=== PATIENT | male | born 1965 | race Caucasian/White ===

== ENCOUNTER 2023-12-30 20:57 | Emergency (ER) | payer OTHER, SELFPAY ==
[2023-12-30 21:02] VITALS: BP 166/96
--- NOTE | 2023-12-30 21:44 | ED.GENMED ---
History of Present Illness
General
Chief Complaint: Abdominal Pain
Source: patient
Exam Limitations: none
Time Seen by Provider: 12/30/23 21:15
Travel History
Have you had any contact with someone who has COVID-19?: No
Do you have any symptoms of coronavirus? Fever > 100 degrees, chills, cough, shortness of breath, sore throat, loss of taste or smell, muscle aches, or headache?: No
History of Present Illness
History of Present Illness:
See MDM
Past History
Past History
ED Past Medical History: GERD
ED Past Surgical History: Other (Mohs)
Social History
Tobacco: Non-smoker
Alcohol: Occasional
Phy Exam
Physical Exam
Physical Exam:
See MDM
Course
Orders/Labs/Results
Orders:
Orders
12/30/23 21:06
Electrocardiogram (*1) Urgent
Reason for Study: Abdominal Pain
EKG- Treatment ONCE
Vital Signs
Initial and Last Documented VS:
Initial Vital Signs
Temp Pulse Resp BP Pulse Ox
98.4 F 70 20 166/96 99
12/30/23 21:02 12/30/23 21:02 12/30/23 21:02 12/30/23 21:02 12/30/23 21:02
Last Documented Vital Signs
Temp Pulse Resp BP Pulse Ox
98.4 F 70 20 166/96 99
12/30/23 21:02 12/30/23 21:02 12/30/23 21:02 12/30/23 21:02 12/30/23 21:02
MDM/Problems Addressed
Differential Diagnosis Includes:
HPI and MDM Narrative:
58-year-old male presenting with upper abdominal pain that has been persistent since today. Symptoms do appear to be worse when he eats. There is no exertional component. Patient is currently on methylprednisolone steroid pack for foot gout he
states his foot is feeling much better. Patient states he has a history of gastritis. Initially, patient states he was worried because his Pepcid is not helping when it usually does. Upon further questioning, patient does believe that it may be
helping. I discussed the coincidence of worsening abdominal pain with starting prednisolone. He does believe that his symptoms get worse every time he takes the steroid.
Patient had recent EGD and was told over the looks okay
When we had a long discussion about methylprednisolone possibly being the, patient agrees with that
He states his biggest concern was whether or not he had acute cholecystitis. I offered doing blood work and official ultrasound report versus bedside ultrasound. Patient opted for the bedside ultrasound knowing that we could potentially miss other
diagnoses. Bedside ultrasound performed by myself showing normal-sized gallbladder. No sludge or stones were noted. There was a questionable polyp. The common bile duct and gallbladder wall within normal limits. No pericholecystic fluid or
sonographic Thacker sign
Physical exam
General: Well appearing and non-toxic
HEENT: protecting airway
Neck: appears supple
CV: No evidence of cyanosis
Resp: No accessory muscle use
Abd: Non-distended. Very mild tenderness. No rebound
Extremities: No deformities
Neuro: alert
Psych: Normal affect
Skin: Intact
Problems Addressed including Acute and Chronic Conditions affecting care:
1. Steroid-induced gastritis
Acuity: acute
Prognosis: stable
Details: Patient will stop the methylprednisolone. Discussed follow-up with his PCP and continue with Pepcid. Discussed adding on PPI on a short-term basis
Differential Diagnosis (but not limited to): Gastritis, pancreatitis, esophagitis
Testing considered: Blood work and CT
Drug therapy (if applicable): OTC meds, please see d/c instruction regarding Rx drugs
Amount and/or Complexity of Data Reviewed
Clinical info obtained from: Patient
External data reviewed: N/A
Labs I independently reviewed (but not limited to): N/A
Radiology: N/A
Pulse Ox: not hypoxic
EKG independently reviewed: N/A
Bench Manager: N/A
Critical Care: N/A
Risk of Complication:
Social Determinants of health: Good social support
Discussed with other providers: N/A
Escalation of Care includes Admit/Obs: After being observed in the Emergency Department, pt stable for discharge.
Occasional wrong word or 'sound a like' substitutions may have occurred due to the inherent limitations of voice recognition software. Read the chart carefully and recognize, using context, where substitutions have occurred.
*Critical Care Note
Total Time (30-74mins, 75-104mins- exclusive of procedures): Not Applicable
ED Attending Note
-
Portions of this chart may have been created with voice recognition software.� Occasional wrong word or��sound alike� substitutions may have occurred due to the inherent limitations of voice recognition software.
Discharge Plan
Departure
Patient Disposition: Home (Routine Discharge)
Date of Disposition: 12/30/23
Time of Disposition: 21:44
Patient with high blood pressure during this ER visit?: Yes
Discharge Problem:
Gastritis
Instructions: Gastritis (DC), BLOOD PRESSURE
Activity Restrictions/Additional Instructions:
Please return for any worsening symptoms.
You may return at any time if you have further concerns.
Please follow up with your doctor at the first available appointment, preferably this week.
I would advise stopping the steroid.
Thank you for choosing [facility].
Interventions
Interventions:
*Risk Screen - Suicide Last Done: 12/30/23 21:02
*Neglect/Abuse Screening Last Done: 12/30/23 21:02
== END 2023-12-30 22:10 | disposition home or self-care (01) ==
LOC: EMR 20:57
PROVIDERS: EMERGENCY PHYSICIAN Student in an Organized Health Care Education/Training Program; FAMILY PHYSICIAN Family Medicine
DX: K29.70 Gastritis, unspecified, without bleeding (principal); K21.9 Gastro-esophageal reflux disease without esophagitis; Z87.19 Personal history of other diseases of the digestive system
CPT/HCPCS: 99283; 93005

== ENCOUNTER 2025-04-08 10:50 | Emergency (ER) | payer OTHER, SELFPAY ==
[2025-04-08] VITALS (13 sets, daily range): BP systolic 111–137; BP diastolic 70–96; PULSE 63–70; BMI 25.1
[2025-04-08 13:34] LABS: Urine Character Clear (Clear)
--- NOTE | 2025-04-08 13:36 | ED.GENMED ---
History of Present Illness
<Sravanthi Lima PA-C - Last Filed: 04/10/25 09:10>
General
Chief Complaint: Dizziness
Source: patient
Exam Limitations: none
Time Seen by Provider: 04/08/25 12:05
Nursing documentation reviewed up to this point in time: agreed with
History of Present Illness
History of Present Illness:
59 y/o M with h/o hiatal hernia
says he nearly passed out today, while walking on his treadmill when he was using his computer as he does most days
pt works from home,w robert up and hadn't eaten any breakfast
had coffee
was walking onthe treadmill and got a sudden pressure like sensation or fullness in his head, then tunnel vision and felt lightheaded and like he was going to pass out, a little bit roomy spinning
also had soem mild neck soreness
says that the symptom passed and about 10 m inutes later he went and showered and it happened again while hew as in the shower, but didn't pass out.
he thought maybe he was hypoglycemic so he ate some fruit and then about an hour later it happened again while he was walking
he did not fully pass out
has had some upper abd pain/pressure/epigastric region since yesterday which is sore to the touch; he has h/o hiatal hernia that 'acts up'
no nausea, vomiting, shortness of breath, fever, chills
pt feels he has been hdyrated
has had a lot of stress recently; mother has lung cancer
his epigatric pain has been acting up and he thinks due to stress
no black or tarry stools
had endosocpy 2 years ago, gastritis and duodenitis
Past History
<Sravanthi Lima PA-C - Last Filed: 04/10/25 09:10>
Past History
ED Past Medical History: GERD
ED Past Surgical History: Other (Mohs)
Social History
Tobacco: Former smoker
Alcohol: Occasional
Drug: None
Review of Systems
<Sravanthi Lima PA-C - Last Filed: 04/10/25 09:10>
Review of Systems
Allergies reviewed?: Yes
All Other Systems: Not applicable
Phy Exam
<Sravanthi Lima PA-C - Last Filed: 04/10/25 09:10>
Physical Exam
Physical Exam:
GENERAL: Alert , in no apparent distress
EYE: pupils equal and reactive
NECK: Supple, full ROM nontender
ENT: o/p clr, mmm.
CARDIAC: Regular rate and rhythm . no edema
LUNGS: Clear breath sounds bilaterally, no acute respiratory distress, no wheezes/rales/rhonchi
ABDOMEN: Soft, +epigastric tenderness mild; neg cordova's sign no r/g, no cvat, normal bowel sounds
heme pos trace stools; LIGHT BROWN
NEUROLOGICAL: Alert and oriented, no focal neuro deficits, cn intact, 5/5 sdtrength, sensation intact
SKIN: Warm and dry, skin intact.
MUSCULOSKELETAL: No edema, well perfused. neg freedom's sign
PSYCH: Normal and appropriate interaction.
Course
<Sravanthi Lima PA-C - Last Filed: 04/10/25 09:10>
Orders/Labs/Results
Orders:
Orders
04/08/25 10:52
Electrocardiogram (*1) Urgent
Reason for Study: Chest Pain
EKG- Treatment ONCE
04/08/25 13:08
Orthostatic VS- Treatment ONCE
04/08/25 13:24
Complete Blood Count/With Diff Urgent
Comprehensive Metabolic Panel Urgent
Lipase Urgent
Troponin I Urgent
Urinalysis Reflex To Culture Urgent
Date Specimen was Collected: 04/08/25
Time Specimen was Collected: 13:12
04/08/25 13:51
CT Head & Neck Angio W/wo IV Urgent
Comment:
Reason For Exam: near syncope with head pressure/neck pain x 3 toda
04/08/25 14:49
0.9% Sodium Chloride 1000 ml [Nss] 1,000 ml IV BOLUS
04/08/25 15:06
Pantoprazole [Protonix] 40 mg PO NOW STA
04/08/25 15:15
EKG- Treatment ONCE
04/08/25 16:15
Electrocardiogram (*1) Urgent
Reason for Study: Chest Pain
04/08/25 16:37
Troponin I Urgent
Abnormal Lab Results
04/08/25
13:24
RBC 4.55 L 10^6/uL
(4.70-6.10)
MCH 32.1 H pg
(27.0-31.0)
Lymphocytes % 17.8 L %
(20.5-51.1)
BUN 26 H mg/dl
(9-20)
Glucose 108 H mg/dl
(70-99)
04/08/25 13:24
04/08/25 13:24
Vital Signs
Initial and Last Documented VS:
Initial Vital Signs
Temp Pulse Resp BP Pulse Ox
36.5 C 81 16 131/88 97
04/08/25 10:57 04/08/25 10:57 04/08/25 10:57 04/08/25 10:57 04/08/25 10:57
Last Documented Vital Signs
Temp Pulse Resp BP Pulse Ox
36.5 C 90 21 137/88 98
04/08/25 10:57 04/08/25 17:15 04/08/25 17:15 04/08/25 17:00 04/08/25 17:15
<Layne Lopez PA-C - Last Filed: 04/08/25 19:12>
Orders/Labs/Results
Orders:
Orders
04/08/25 10:52
Electrocardiogram (*1) Urgent
Reason for Study: Chest Pain
EKG- Treatment ONCE
04/08/25 13:08
Orthostatic VS- Treatment ONCE
04/08/25 13:24
Complete Blood Count/With Diff Urgent
Comprehensive Metabolic Panel Urgent
Lipase Urgent
Troponin I Urgent
Urinalysis Reflex To Culture Urgent
Date Specimen was Collected: 04/08/25
Time Specimen was Collected: 13:12
04/08/25 13:51
CT Head & Neck Angio W/wo IV Urgent
Comment:
Reason For Exam: near syncope with head pressure/neck pain x 3 toda
04/08/25 14:49
0.9% Sodium Chloride 1000 ml [Nss] 1,000 ml IV BOLUS
04/08/25 15:06
Pantoprazole [Protonix] 40 mg PO NOW STA
04/08/25 15:15
EKG- Treatment ONCE
04/08/25 16:15
Electrocardiogram (*1) Urgent
Reason for Study: Chest Pain
04/08/25 16:37
Troponin I Urgent
Abnormal Lab Results
04/08/25
13:24
RBC 4.55 L 10^6/uL
(4.70-6.10)
MCH 32.1 H pg
(27.0-31.0)
Lymphocytes % 17.8 L %
(20.5-51.1)
BUN 26 H mg/dl
(9-20)
Glucose 108 H mg/dl
(70-99)
04/08/25 13:24
04/08/25 13:24
Vital Signs
Initial and Last Documented VS:
Initial Vital Signs
Temp Pulse Resp BP Pulse Ox
36.5 C 81 16 131/88 97
04/08/25 10:57 04/08/25 10:57 04/08/25 10:57 04/08/25 10:57 04/08/25 10:57
Last Documented Vital Signs
Temp Pulse Resp BP Pulse Ox
36.5 C 90 21 137/88 98
04/08/25 10:57 04/08/25 17:15 04/08/25 17:15 04/08/25 17:00 04/08/25 17:15
<Sravanthi Lima PA-C - Last Filed: 04/10/25 09:10>
MDM/Problems Addressed
Differential Diagnosis Includes:
NEAR SYNCOPE/VASOVAGAL, DEHYDRATION, ORTHOSTASIS, GI BLEED, LESS LIKELY CARDIAC DYSRHYTHMIA
MDM/Problems Addressed:
59 y/o M
h/o gastritis/duodenitis not on PPI
here with near sycnoep while walking x 3 episodes today rather spaced together
has been under a lot of stress
epigastric pain flared up yesterday and he has had it today as well but drank coffee this morning without eating and then while doing light walking nearly passed out; he felt dizziness and fullyness in his head as wellwith this
no real ches tpain, just the peristent and not worse epigastric pain
here he feels back to normal
neg orthostatics
normal neuro exam
no neck trauma
ekg shows 1 t wave inv avL compared to old; toherwise neg
1st trop neg
doubt this epigastricp ain is anginal equivalent
but will repeat 2nd trop/ekg for 4 pm
epigastric pain likely related to gastritis or PUD and pt has VERY FAINT heme pos light brown stool
bun 26 but hg stable
d/w ed attending
stalbe from GI bleeding perspective but return precautions
will start PPI and recommend GI f/u
anticipate d/c after 2nd trop and ekg at 4 pm
<Sravanthi Lima PA-C - Last Filed: 04/10/25 09:10>
*Pulse Oximetry
SaO2: 98
Oxygen Mode of Delivery: Room air
<Layne Lopez PA-C - Last Filed: 04/08/25 19:12>
*Pulse Oximetry
Patient hypoxic: no (97%)
*Critical Care Note
Total Time (30-74mins, 75-104mins- exclusive of procedures): Not Applicable
<Layne Lopez PA-C - Last Filed: 04/08/25 19:12>
Update Note
Update Note:
CTA head/neck negative for acute findings. Repeat EKG shows normal sinus rhythm without ischemic changes and second troponin remains undetectable. Patient is asymptomatic on reassessment. He is ambulating with a steady gait. Patient stable for
discharge.
ED Attending Note
<Sravanthi Lima PA-C - Last Filed: 04/10/25 09:10>
-
Portions of this chart may have been created with voice recognition software.� Occasional wrong word or��sound alike� substitutions may have occurred due to the inherent limitations of voice recognition software.
Discharge Plan
Departure
Patient Disposition: Home (Routine Discharge)
Date of Disposition: 04/08/25
Time of Disposition: 17:24
Patient with high blood pressure during this ER visit?: No
Condition: Fair
Covid-19: Not Applicable
Discharge Problem:
Gastritis, Heme positive stool, Near syncope
Instructions: Near Fainting (DC), Gastritis - Discharge instructions
Prescriptions:
New
pantoprazole [Protonix] 40 mg tablet,delayed release (DR/EC)
40 mg PO DAILY Qty: 14 0RF
No Action
acetaminophen [Tylenol] 325 mg Tablet
650 mg PO Q6H PRN (Reason: pain/fever)
Referrals:
Harris Rutherford MD [Active, Gastroenterology] - Follow up in 5-7 days
Dilan Doss DO [Family Provider, Family Practice] - Follow up in 2-3 days
Activity Restrictions/Additional Instructions:
YOUR CAT SCAN OF YOUR HEAD/NECK WAS NEGATIVE FOR ANY CONCERNING FINDINGS TO C AUSE YOUR NEAR PASSING OUT
YOUR EKG IS SUBTLY CHANGED FROM AN OLD ONE WHICH WITH 2 NEGATIVE TROPONINS IS NONSPECIFIC
YOUR UPPER ABDOMINAL PAIN NEEDS MOER WORK UP WITH YOUR GI DOCTOR
FOR NOW TRY PROTONIX 40 MG ON EMPTY STOMACH FIRST THING IN THE MORNING
WAIT 45 MINTUES BEFORE EATING
DO THIS FOR 2 WEEKS
HAVE A LOW THRESHOLD TO RETURN TOT HE ER: WORSE/SEVERE ABDOMINAL PAIN, CHEST PAIN, PASSING OUT, BLACK STOOL, BLOODY STOOL, VOMITING BLOOD OR ANY CONCERNS
AVOID ACIDIC FOODS, NSAIDS, ASPIRIN
FOLLOW UP WITH YOUR FAMILY DOCTOR WELL
Interventions
Interventions:
*Risk Screen - Suicide Last Done: 04/08/25 10:59
*General Assessment Last Done: 04/08/25 13:37
*Neglect/Abuse Screening Last Done: 04/08/25 10:59
*ED- Fall Risk Assessment Last Done: 04/08/25 13:37
*ED COVID-19 Vaccine History Last Done: 04/08/25 13:37
*Nursing Disposition Last Done: 04/08/25 17:38
ED- Neurological Assessment Last Done: 04/08/25 13:37
ED- Cardiac Assessment Last Done: 04/08/25 13:37
ED Swallowing Screen Last Done: 04/08/25 13:37
Discharge Date and Time
Discharge Date/Time: 04/08/25 17:40
Print Language: GIBRALTARIAN
[2025-04-08 13:45] LABS: Hematocrit 41.4 % (39.0-52.0); Hemoglobin 14.6 g/dL (13.0-18.0); Mean Corp Hgb Conc. 35.3 g/dL (33.0-37.0); Mean Corpuscular Volume 91.0 fL (80.0-94.0); Nucleated Red Blood Cells % 0 % (-); Platelet Count 235 10^3/uL (130-400); Red Cell Dist. Width 12.0 % (11.5-14.5)
[2025-04-08 13:52] LABS: Potassium 4.2 mmol/L (3.5-5.1)
[2025-04-08 13:54] LABS: ALT (SGPT) 27 U/L (0-50); AST (SGOT) 25 U/L (17-59); Albumin 4.8 g/dl (3.5-5.0); Alkaline Phosphatase 44 U/L (38-126); Blood Urea Nitrogen 26 mg/dl (9-20); Calcium 9.9 mg/dl (8.4-10.2); Carbon Dioxide 28 mmol/L (22-30); Chloride 104 mmol/L (98-107); Estimated Creatinine Clearance 86 ml/min; Glucose 108 mg/dl (70-99); Lipase 79 U/L (23-300); Sodium 138 mmol/L (135-145); Total Protein 7.6 g/dl (6.3-8.2); eGFR > 60.00
[2025-04-08 14:05] LABS: Troponin I < 0.012 ng/ml
[2025-04-08] MEDS: PROTONIX 40 MG PO (15:16)
[2025-04-08] MEDS: NSS 1000 IV (15:16)
[2025-04-08 17:12] LABS: Troponin I < 0.012 ng/ml
== END 2025-04-08 17:40 | disposition home or self-care (01) ==
LOC: EMR 10:50
PROVIDERS: Physician Assistant; EMERGENCY PHYSICIAN Student in an Organized Health Care Education/Training Program; FAMILY PHYSICIAN Family Medicine
DX: R55 Syncope and collapse (principal); R10.10 Upper abdominal pain, unspecified; K29.00 Acute gastritis without bleeding; R19.5 Other fecal abnormalities; M54.2 Cervicalgia; K44.9 Diaphragmatic hernia without obstruction or gangrene; K21.9 Gastro-esophageal reflux disease without esophagitis; M10.9 Gout, unspecified; Z63.79 Other stressful life events affecting family and household; Z87.891 Personal history of nicotine dependence; Z85.828 Personal history of other malignant neoplasm of skin; Z86.16 Personal history of COVID-19; Z91.048 Other nonmedicinal substance allergy status
CPT/HCPCS: 99285; 96360; 70496; 70498; 80053; 81003; 83690; 84484; 85025; 93005; Q9967

== ENCOUNTER → 2025-04-09 10:52 | Outpatient (REF) | payer OTHER, SELFPAY | LOC: HWRAD 10:52 | PROVIDERS: ATTENDING PHYSICIAN Family Medicine | DX: Z87.891 Personal history of nicotine dependence (principal) | CPT/HCPCS: 71271 ==

== ENCOUNTER 2025-04-28 14:37 | Emergency (ER) | payer OTHER, SELFPAY ==
[2025-04-28 14:42] VITALS: BP 129/79
[2025-04-28 15:16] LABS: Hematocrit 39.9 % (39.0-52.0); Hemoglobin 14.3 g/dL (13.0-18.0); Mean Corp Hgb Conc. 35.8 g/dL (33.0-37.0); Mean Corpuscular Volume 90.3 fL (80.0-94.0); Nucleated Red Blood Cells % 0 % (-); Platelet Count 252 10^3/uL (130-400); Red Cell Dist. Width 11.9 % (11.5-14.5)
[2025-04-28 15:21] LABS: INR 0.97; PT 13.2 Sec (11.4-14.6)
[2025-04-28 15:22] LABS: APTT 27.1 Sec (23.4-35.0)
[2025-04-28 15:26] LABS: ALT (SGPT) 34 U/L (0-50); AST (SGOT) 28 U/L (17-59); Albumin 4.9 g/dl (3.5-5.0); Alkaline Phosphatase 43 U/L (38-126); Blood Urea Nitrogen 18 mg/dl (9-20); Calcium 9.5 mg/dl (8.4-10.2); Carbon Dioxide 29 mmol/L (22-30); Chloride 101 mmol/L (98-107); Glucose 90 mg/dl (70-99); Potassium 4.5 mmol/L (3.5-5.1); Sodium 136 mmol/L (135-145); Total Protein 7.6 g/dl (6.3-8.2); eGFR > 60.00
--- NOTE | 2025-04-28 16:27 | ED.GENMED ---
History of Present Illness
General
Chief Complaint: Rectal Bleeding
Source: patient
Exam Limitations: none
Time Seen by Provider: 04/28/25 16:27
History of Present Illness
History of Present Illness:
59yoM with a history of GERD and a hiatal hernia presenting for evaluation after an episode of dark stools. Patient had some stabbing pain in his epigastric region last night. This started after he ate fried chicken for dinner. Pain has improved
but he continues to feel some bloating. He had an episode of black stool this morning. He has not had any further bowel movements since. He denies any chest pain, shortness of breath, dizziness, syncope. Of note, patient took Pepto-bismol last
night due to his abdominal symptoms. He called the GI office this morning and he was advised to go to the ED for evaluation. Patient does not take any blood thinners.
Past History
Past History
ED Past Medical History: GERD
ED Past Surgical History: Other (Mohs)
Social History
Tobacco: Former smoker
Alcohol: Occasional
Drug: None
Phy Exam
General Physical Exam
General Presentation: well appearing and no apparent distress
General Skin: warm and dry
General Habitus: normal
General Mental: alert
ENT Exam
ENT Exam: normocephalic
Pulmonary Exam
Pulmonary Exam: no respiratory distress
Gastrointestinal Exam
Gastrointestinal Exam: non tender, soft and non distended
Stool: other (No stool obtained on digital rectal exam. )
Neurological Exam
Neurological Exam: alert
Jaz Coma Scale
Eye Opening: Spontaneous
Verbal Response: Oriented
Motor Response: Obeys Commands
GCS Total Score: 15
Skin Exam
Skin Exam: normal color and warm/dry
Psychiatric Exam
Psychiatric Exam: normal mood/affect
Course
Orders/Labs/Results
Orders:
Orders
04/28/25 14:47
ECG [Electrocardiogram (*1)] Urgent
Reason for Study: Abdominal Pain
EKG- Treatment ONCE
04/28/25 14:54
Type+Screen Urgent
Complete Blood Count/With Diff Urgent
Comprehensive Metabolic Panel Urgent
Lipase Urgent
PTT Urgent
Prothrombin Time Urgent
04/28/25 15:12
ABO2 Urgent
BBK Wristband Number:
Associate notified that ABO2 has been ordered: [id number]
Date: 04/28/25
Time: 15:12
Plastic Sheets Finishing Supervisor ID: [id number]
04/28/25 16:52
Add On- LAB Stat
Tests Added?: lipase
Abnormal Lab Results
04/28/25
14:54
RBC 4.42 L 10^6/uL
(4.70-6.10)
MCH 32.4 H pg
(27.0-31.0)
04/28/25 14:54
04/28/25 14:54
Vital Signs
Initial and Last Documented VS:
Initial Vital Signs
Temp Pulse Resp BP Pulse Ox
98.2 F 77 18 129/79 97
04/28/25 14:42 04/28/25 14:42 04/28/25 14:42 04/28/25 14:42 04/28/25 14:42
Last Documented Vital Signs
Temp Pulse Resp BP Pulse Ox
98.2 F 58 16 120/71 96
04/28/25 14:42 04/28/25 17:00 04/28/25 17:00 04/28/25 17:00 04/28/25 17:00
MDM/Problems Addressed
Differential Diagnosis Includes:
59yoM here after 1 episode of dark stool this AM. Had some stabbing epigastric pain last night. Hx of GERD and hiatal hernia. Did take a dose of Pepto-Bismol last night. VSS. He is well appearing in no distress. Abdominal exam is benign. No stool
obtained on digital rectal exam. Differential diagnosis includes but is not limited to: black stool secondary to Pepto-Bismol, gastritis, PUD, AVM
Workup initiated in triage. Hemoglobin is normal at 14.3. BUN also normal. Suspect black stool was related to Pepto-Bismol. Repeat vitals are normal. No indication for hospitalization. He was started on Protonix BID. Message sent to the GI front
office to arrange close f/u. Strict ED return precautions reviewed. Patient discharged in stable condition.
*Pulse Oximetry
SaO2: 97
Oxygen Mode of Delivery: Room air
Patient hypoxic: no (97%)
*EKG
Interpreted by ED Provider?: Yes
EKG Intrepretation Date: 04/28/25
Heart Rate: 71
Rate: normal
Rhythm: sinus
[place]: normal axis
Interval: normal interval
QRS Pattern: normal QRS
Ischemia: no ischemia
*Critical Care Note
Total Time (30-74mins, 75-104mins- exclusive of procedures): Not Applicable
ED Attending Note
-
Portions of this chart may have been created with voice recognition software.� Occasional wrong word or��sound alike� substitutions may have occurred due to the inherent limitations of voice recognition software.
Discharge Plan
Departure
Patient Disposition: Home (Routine Discharge)
Date of Disposition: 04/28/25
Time of Disposition: 17:08
Patient with high blood pressure during this ER visit?: No
Discharge Problem:
Black stool
Instructions: Gastritis - ED discharge instructions
Prescriptions:
New
pantoprazole [Protonix] 40 mg tablet,delayed release (DR/EC)
40 mg PO BID 30 Days Qty: 60 0RF
No Action
pantoprazole [Protonix] 40 mg tablet,delayed release (DR/EC)
40 mg PO DAILY Qty: 14 0RF
acetaminophen [Tylenol] 325 mg Tablet
650 mg PO Q6H PRN (Reason: pain/fever)
Referrals:
Dilan Doss DO [Family Provider, Family Practice]
Bere Larios DO [Active, Gastroenterology]
Activity Restrictions/Additional Instructions:
Take Protonix as prescribed. Avoid foods that worsen acid reflux (avoid citrus, alcohol, spicy foods, etc.).
Please call tomorrow to schedule a follow-up with gastroenterology. Return to the ER with any new or worsening symptoms including dizziness, shortness of breath, or passing out.
Interventions
Interventions:
*Risk Screen - Suicide Last Done: 04/28/25 14:42
*General Assessment Last Done: 04/28/25 17:08
*Neglect/Abuse Screening Last Done: 04/28/25 17:08
*ED- Fall Risk Assessment Last Done: 04/28/25 17:08
*ED COVID-19 Vaccine History Last Done: 04/28/25 17:08
*Nursing Disposition Last Done: 04/28/25 17:30
RU-Fdzfwu-Pbehhygpci Assessment Last Done: 04/28/25 17:08
ED- Cardiac Assessment Last Done: 04/28/25 17:08
ED- Pulmonary Assessment Last Done: 04/28/25 17:08
Discharge Date and Time
Discharge Date/Time: 04/28/25 17:32
Print Language: GREENLANDIC
[2025-04-28 17:00] VITALS: BP 120/71
--- NOTE | 2025-04-28 17:06 | EDRN ---
Pt states he arrives for UGI issues. Stool dark and tarry. Pt took peptobismol last night.
[2025-04-28 17:08] VITALS: BMI 26.0
[2025-04-28 17:24] LABS: Lipase 121 U/L (23-300)
== END 2025-04-28 17:32 | disposition home or self-care (01) ==
LOC: EMR 14:37
PROVIDERS: Emergency Medicine; EMERGENCY PHYSICIAN Emergency Medicine; FAMILY PHYSICIAN Family Medicine
DX: K92.1 Melena (principal); Z87.891 Personal history of nicotine dependence
CPT/HCPCS: 99284; 80053; 83690; 85025; 85610; 85730; 86850; 86900; 86901; 93005

== ENCOUNTER 2025-05-21 06:26 | Day surgery (SDC) | payer OTHER, SELFPAY | END 2025-05-21 12:08 | disposition home or self-care (01) | LOC: GI 06:26 | PROVIDERS: ATTENDING PHYSICIAN Internal Medicine Gastroenterology | DX: R10.10 Upper abdominal pain, unspecified (principal); K29.80 Duodenitis without bleeding; K29.70 Gastritis, unspecified, without bleeding; K29.50 Unspecified chronic gastritis without bleeding; K31.A0 Gastric intestinal metaplasia, unspecified | CPT/HCPCS: 43239; 88305; 88342 ==